=== PATIENT | female | born 1985 | race Caucasian/White ===

== ENCOUNTER 2025-01-16 15:28 | Outpatient (CLI) | payer SELFPAY ==
[2025-01-17 18:11] LABS: HBs Antibody, Quant <3.1 mIU/mL (See Note); Hepatitis B Surface Ab Negative (See Note)
[2025-01-18 12:16] LABS: TB Interpretation Negative (Negative); TB1 Ag minus Nil 0.00 IU/mL; TB2 Ag minus Nil 0.00 IU/mL
== END 2025-01-16 15:29 | disposition home or self-care (01) ==
LOC: LBO 15:29
PROVIDERS: Visit Provider Student in an Organized Health Care Education/Training Program
DX: Z02.1 Encounter for pre-employment examination (principal)
CPT/HCPCS: 36415; 86706; 86787; 87340; 86480

== ENCOUNTER 2025-02-20 11:47 | Outpatient (CLI) | payer SELFPAY ==
--- NOTE | 2025-02-20 11:45 | RT.EKG_ITS ---
APPROVED REPORT Exam: Resting ECG Reason for Exam: chest discomfort Patient Location: O HR:90 bpm ECG Measurements Heart Rate 90 AXIS PA 152 P 54 QRSd 101 QRS 6 QT 375 T 13 QTc 459 Conclusion Sinus rhythm...normal P axis, V-rate 50- 99 Probable left atrial enlargement...P >50mS, <-0.10mV V1
== END 2025-02-20 11:48 | disposition home or self-care (01) ==
LOC: DI.CM 11:48
PROVIDERS: Visit Provider Nurse Practitioner Acute Care
DX: R07.89 Other chest pain (principal)
CPT/HCPCS: 93010

== ENCOUNTER 2025-02-20 13:21 | Outpatient (CLI) | payer SELFPAY ==
[2025-02-20 12:56] LABS: Abs Immature Grans 0.02 10^3/uL (0.0-0.06); HCT 36.6 % (36.0-46.0); HGB 11.7 g/dL (11.2-15.7); Immature Grans % 0.2 %; MCH 25.5 pg (27.0-33.0); MCHC 32.0 % (32.0-36.0); MCV 80 fL (80-95); MPV 10.2 fL (8.0-11.0); Platelet Count 359 10^3/uL (130-400); RBC 4.59 10^6/uL (3.93-5.22); RDW 14.5 % (11.7-14.6); RDW-SD 41.5 fL; WBC 8.31 10^3/uL (4.4-10.8)
[2025-02-20 13:17] LABS: ALT 13 U/L (10-49); AST 18 U/L (<34); Albumin 4.7 g/dL (3.2-5.0); Alkaline Phosphatase 71 U/L (46-116); Anion Gap 9.8 mmol/L (3-11); BUN 12 mg/dL (9-23); Bilirubin, Total 0.50 mg/dL (0.2-1.2); CO2 24.2 mmol/L (20.0-31.0); Calcium 9.3 mg/dL (8.3-10.6); Chloride 105 mmol/L (98-107); Glucose 97 mg/dL (74-106); Potassium 4.0 mmol/L (3.5-5.1); Sodium 139 mmol/L (136-145); Total Protein 7.9 g/dL (5.7-8.2)
[2025-02-20 13:23] LABS: D-Dimer 217 ng/mlFEU (<500)
[2025-02-20 13:56] LABS: Troponin I < 3 ng/L (<35)
== END 2025-02-20 13:22 | disposition home or self-care (01) ==
LOC: LBO 13:22
PROVIDERS: Visit Provider Nurse Practitioner Acute Care
DX: R07.9 Chest pain, unspecified (principal)
CPT/HCPCS: 36415; 80053; 83880; 84484; 85025; 85379

== ENCOUNTER → 2025-02-20 13:23 | Outpatient (CLI) | payer SELFPAY ==
--- NOTE | 2025-02-20 12:45 | DI.RAD_ITS ---
Exam(s) XR CHEST 2V PA LATERAL EXAM: XR CHEST 2V PA LATERAL CLINICAL HISTORY: chest pain,r07.9 TECHNIQUE: 2D digital imaging was performed of the chest. Two images were obtained. PA and lateral views were obtained. COMPARISON: No exams were available for comparison FINDINGS: MEDIASTINUM: Normal. HEART: Normal. PULMONARY VASCULATURE: Normal. LUNGS: Clear. PLEURAL SPACE: No pleural effusion or pneumothorax. BONE:Within normal limits for the patient's age. OTHER FINDINGS:Normal. IMPRESSION: No acute pulmonary findings. DATA REPOSITORY: RADIATION DOSE DELIVERED:
== END ==
PROVIDERS: Visit Provider Nurse Practitioner Acute Care
DX: R07.9 Chest pain, unspecified (principal)
CPT/HCPCS: 71046